=== PATIENT | male | born 1965 | race African-American/Black ===

== ENCOUNTER 2017-10-07 01:58 | Emergency (ER) | payer MEDICARE, MEDICAID, OTHER ==
[~2017-10-07] VITALS: Ht 175.3 cm; Wt 81.0 kg
[2017-10-07] MEDS ORDERED: IBUPROFEN 600MG TABLET PO ONE (03:45)
[2017-10-07 04:02] VITALS: BP 132/79
== END 2017-10-07 04:11 | disposition home or self-care (01) ==
LOC: ER 01:58
DX: M25.571 Pain in right ankle and joints of right foot (principal); E11.9 Type 2 diabetes mellitus without complications; F12.10 Cannabis abuse, uncomplicated
CPT/HCPCS: 73610; 99284

== ENCOUNTER 2018-01-16 13:39 | Emergency (ER) | payer MEDICARE, MEDICAID, OTHER ==
[~2018-01-16] VITALS: Ht 175.3 cm; Wt 90.0 kg
[2018-01-16 13:50] VITALS: BP 158/93
== END 2018-01-16 17:22 | disposition left against medical advice (07) ==
LOC: ER 14:00
DX: R45.851 Suicidal ideations (principal); R45.850 Homicidal ideations; R44.1 Visual hallucinations; E11.9 Type 2 diabetes mellitus without complications; F17.200 Nicotine dependence, unspecified, uncomplicated; F12.10 Cannabis abuse, uncomplicated; F20.9 Schizophrenia, unspecified
CPT/HCPCS: 99281

== ENCOUNTER 2018-04-11 06:12 | Emergency (ER) | payer MEDICARE, MEDICAID, OTHER ==
[~2018-04-11] VITALS: Ht 175.3 cm; Wt 84.0 kg
[2018-04-11 06:43] VITALS: BP 131/74
== END 2018-04-11 07:35 | disposition left against medical advice (07) ==
LOC: ER 06:12
DX: M25.511 Pain in right shoulder (principal); F32.9 Major depressive disorder, single episode, unspecified; F17.200 Nicotine dependence, unspecified, uncomplicated
CPT/HCPCS: 99281